=== PATIENT | male | born 1940 | race Caucasian/White ===

== ENCOUNTER 2025-01-21 23:08 | Emergency (ER) | payer MEDICARE, SELFPAY ==
[2025-01-21 23:31] VITALS: BP 152/70; PULSE 67; RESP 18; TEMP 36.7; O2SAT 96; BMI 27.9
--- NOTE | 2025-01-21 23:50 | DI.CT.S_ITS ---
PROCEDURE: CT HEAD/BRAIN WO CON INDICATIONS: dizziness TECHNIQUE: Noncontrast 4.5 mm thick angled axial sections acquired from the foramen magnum to the vertex, with coronal and sagittal reformats. For radiation dose reduction, the following was used: automated exposure control, adjustment of mA and/or kV according to patient size. COMPARISON: None. FINDINGS: Image quality: Diagnostic. CSF spaces: Basal cisterns are patent. No extra-axial fluid collections. The ventricles are symmetric in size and shape. Brain: No intracranial bleeds or mass effect. There is cerebral volume loss, with resultant ventricular and sulcal prominence. There are periventricular and deep white matter chronic small vessel ischemic changes. There is intracranial internal carotid artery atherosclerosis. Skull and face: Calvarium and visualized facial bones appear intact, without suspicious lesions. Sinuses: Mild mucosal thickening of the maxillary sinuses. IMPRESSION: No acute intracranial pathology. Dictated by: Abdullahi Waggoner M.D. on 01/22/2025 at 0:28 Approved by: Abdullahi Waggoner M.D. on 01/22/2025 at 0:29
[2025-01-21] MEDS: ONDANSETRON 4 MG/2 ML INJ IV (23:56)
[2025-01-22] VITALS (33 sets, daily range): BP systolic 125–195; BP diastolic 64–91; PULSE 58–91; RESP 15–35; O2SAT 91–96
[2025-01-22 00:02] LABS: Add Manual Diff / Slide Review NO; Hematocrit 42.4 % (41-53); Hemoglobin 14.4 g/dL (13.5-17.5); Lymphocytes Absolute Auto 900 /uL (1100-4500); Mean Corpuscular HGB Conc 33.9 % (30-36); Mean Corpuscular Hemoglobin 31.3 PG (26-34); Mean Corpuscular Volume 92.3 fL (80-100); Platelet Count 231 X10^3/uL (150-400)
[2025-01-22 00:12] LABS: Alanine Aminotransferase 34 IU/L (<50); Albumin 4.3 g/dL (3.5-5.0); Albumin Globulin Ratio 1.3 (1.0-2.8); Alkaline Phosphatase 75 U/L (38-126); Blood Urea Nitrogen 12 mg/dL (9-20); Calcium 9.0 mg/dL (8.4-10.2); Carbon Dioxide 27 mmol/L (22-32); Chloride 101 mmol/L (98-107); Estimated Glomerular Filt Rate > 60 mL/min (>60); Globulin 3.2 g/dL (1.7-4.1); Glucose 225 mg/dL (70-99); HEMOLYSIS < 15 (0-50); Potassium 4.2 mmol/L (3.4-5.1); Sodium 136 mmol/L (137-145); Total Protein 7.5 g/dL (6.3-8.2)
--- NOTE | 2025-01-22 05:27 | ED.NAVMDI ---
HPI - Nausea/Vomiting/Diarrhea <Mingo Mckeon MD - Last Filed: 01/22/25 15:34> General Chief complaint: Nausea/Vomiting/Diarrhea Stated complaint: fell, hit head possible concussion Time Seen by Provider: 01/22/25 03:15 Source: patient Mode of arrival: Wheelchair History of Present Illness HPI Narrative: 84-year-old male visiting [facility] from home [facility], with sleeping on a bed that is slightly higher than his usual height, well family members were out watching fireworks on 01/20/2025, patient lost his balance trying to get out from the bed, fell forward striking his forehead on the ground, no loss of consciousness, had emesis thereafter, seemed unsteady in his gait, and then seemed to recover. He would not seek care initially from [place]. He has had persisting frontal headache since then. Also has abrasion to the right forearm. Without any obvious new injuries. Related Data Previous Rx's ?Medication ?Instructions ?Recorded ondansetron 4 mg disintegrating 4 mg PO Q6H PRN nausea and 01/22/25 tablet vomiting #20 tabs Allergies Allergy/AdvReac Type Severity Reaction Status Date / Time No Known Drug Allergies Allergy Verified 01/21/25 23:31 Patient History <Mingo Mckeon MD - Last Filed: 01/22/25 15:34> Social History Smoking Status: Never smoker Smoking Status: Never smoker Exam <Mingo Mckeon MD - Last Filed: 01/22/25 15:34> Narrative Exam Narrative: GENERAL: Well-developed patient, in mild distress. HEAD: Atraumatic. Normocephalic. EYES: Pupils equal round and reactive. Extraocular motions intact. No scleral icterus. No injection or drainage. ENT: Nose without bleeding, purulent drainage. Throat without erythema, tonsillar hypertrophy or exudate. Airway patent. NECK: Trachea midline. Non tender CARDIOVASCULAR: Regular rate and rhythm without murmurs, gallops, or rubs. RESPIRATORY: Clear to auscultation. Breath sounds equal bilaterally. No wheezes, rales, or rhonchi. GASTROINTESTINAL: Abdomen soft, non-tender, nondistended. EXTREMITIES: Right elbow abrasion, no suturable laceration, normal range of motion. BACK: Nontender without deformity or crepitance. No flank tenderness. NEURO: AOx3. Motor functions grossly nonfocal. SKIN: No rash or erythema of visible areas Initial Vital Signs Initial Vital Signs: Vital Signs Temperature 98.0 F 01/21/25 23:31 Pulse Rate 67 01/21/25 23:31 Respiratory Rate 18 01/21/25 23:31 Blood Pressure 152/70 H 01/21/25 23:31 Pulse Oximetry 96 01/21/25 23:31 Oxygen Delivery Method Room Air 01/21/25 23:31 <Bear Porras MD - Last Filed: 01/22/25 10:49> Initial Vital Signs Initial Vital Signs: Vital Signs Temperature 98.0 F 01/21/25 23:31 Pulse Rate 67 01/21/25 23:31 Respiratory Rate 18 01/21/25 23:31 Blood Pressure 152/70 H 01/21/25 23:31 Pulse Oximetry 96 01/21/25 23:31 Oxygen Delivery Method Room Air 01/21/25 23:31 Course <Mingo Mckeon MD - Last Filed: 01/22/25 15:34> Orders Ordered: ED Orders 01/22/25 08:54 CBC Auto Diff [Complete Blood Count AUTO DIFF] Stat CMP [Comprehensive Metabolic Panel] Stat Discontinued Medications Bacitracin (Bacitracin Oint 0.9 Gm Pckt) 1 applic TOP NOW ONE Stop: 01/22/25 07:21 Last Admin: 01/22/25 08:43 Dose: 1 applic Documented By: Sodium Chloride (Normal Saline 0.9%) 500 mls @ 500 mls/hr IV BOLUS ONE Stop: 01/22/25 08:41 Last Infusion: 01/22/25 09:00 Dose: Infused Documented By: Admin: 01/22/25 08:06 Dose: 500 mls/hr Documented By: Ondansetron HCl (Ondansetron 4 Mg/2 Ml Inj) 4 mg IV NOW ONE Stop: 01/21/25 23:51 Last Admin: 01/21/25 23:56 Dose: 4 mg Documented By: RISHABH Vital Signs Vital signs: Vital Signs - 8 hr 01/22/25 07:30 01/22/25 07:35 01/22/25 07:35 Pulse Rate 62 64 Pulse Rate [Orthostatic Lying] Pulse Rate [Orthostatic Sitting] Pulse Rate [Orthostatic Standing] Respiratory Rate 27 H 25 H Blood Pressure 164/71 H Blood Pressure [Orthostatic Lying] Blood Pressure [Orthostatic Sitting] Blood Pressure [Orthostatic Standing] Pulse Oximetry 96 94 Oxygen Delivery Method 01/22/25 08:00 01/22/25 08:01 01/22/25 08:01 Pulse Rate 60 60 Pulse Rate [Orthostatic Lying] Pulse Rate [Orthostatic Sitting] Pulse Rate [Orthostatic Standing] Respiratory Rate 16 15 Blood Pressure 177/70 H Blood Pressure [Orthostatic Lying] Blood Pressure [Orthostatic Sitting] Blood Pressure [Orthostatic Standing] Pulse Oximetry 92 93 Oxygen Delivery Method 01/22/25 08:30 01/22/25 09:00 01/22/25 09:29 Pulse Rate 60 63 65 Pulse Rate [Orthostatic Lying] Pulse Rate [Orthostatic Sitting] Pulse Rate [Orthostatic Standing] Respiratory Rate 16 17 23 Blood Pressure Blood Pressure [Orthostatic Lying] Blood Pressure [Orthostatic Sitting] Blood Pressure [Orthostatic Standing] Pulse Oximetry 96 95 95 Oxygen Delivery Method 01/22/25 09:29 01/22/25 09:30 01/22/25 09:31 Pulse Rate 66 Pulse Rate [Orthostatic Lying] Pulse Rate [Orthostatic Sitting] Pulse Rate [Orthostatic Standing] Respiratory Rate 28 H Blood Pressure 153/64 H 148/67 H Blood Pressure [Orthostatic Lying] Blood Pressure [Orthostatic Sitting] Blood Pressure [Orthostatic Standing] Pulse Oximetry 94 Oxygen Delivery Method 01/22/25 09:31 01/22/25 09:42 01/22/25 09:46 Pulse Rate 70 72 Pulse Rate [Orthostatic Lying] 66 Pulse Rate [Orthostatic Sitting] 67 Pulse Rate [Orthostatic Standing] 72 Respiratory Rate 22 19 Blood Pressure 148/67 H Blood Pressure [Orthostatic Lying] 177/70 H Blood Pressure [Orthostatic Sitting] 153/64 H Blood Pressure [Orthostatic Standing] 148/67 H Pulse Oximetry 95 96 Oxygen Delivery Method Room Air 01/22/25 10:00 01/22/25 10:16 01/22/25 10:16 Pulse Rate 69 58 L Pulse Rate [Orthostatic Lying] Pulse Rate [Orthostatic Sitting] Pulse Rate [Orthostatic Standing] Respiratory Rate 35 H 24 Blood Pressure 158/70 H Blood Pressure [Orthostatic Lying] Blood Pressure [Orthostatic Sitting] Blood Pressure [Orthostatic Standing] Pulse Oximetry 95 94 Oxygen Delivery Method 01/22/25 10:30 01/22/25 11:00 01/22/25 11:50 Pulse Rate 59 L 60 73 Pulse Rate [Orthostatic Lying] Pulse Rate [Orthostatic Sitting] Pulse Rate [Orthostatic Standing] Respiratory Rate 16 15 20 Blood Pressure 158/70 H Blood Pressure [Orthostatic Lying] Blood Pressure [Orthostatic Sitting] Blood Pressure [Orthostatic Standing] Pulse Oximetry 93 95 96 Oxygen Delivery Method Room Air <Bear Porras MD - Last Filed: 01/22/25 10:49> Orders Ordered: ED Orders 01/22/25 08:54 CBC Auto Diff [Complete Blood Count AUTO DIFF] Stat CMP [Comprehensive Metabolic Panel] Stat Discontinued Medications Bacitracin (Bacitracin Oint 0.9 Gm Pckt) 1 applic TOP NOW ONE Stop: 01/22/25 07:21 Last Admin: 01/22/25 08:43 Dose: 1 applic Documented By: Sodium Chloride (Normal Saline 0.9%) 500 mls @ 500 mls/hr IV BOLUS ONE Stop: 01/22/25 08:41 Last Infusion: 01/22/25 09:00 Dose: Infused Documented By: Admin: 01/22/25 08:06 Dose: 500 mls/hr Documented By: Ondansetron HCl (Ondansetron 4 Mg/2 Ml Inj) 4 mg IV NOW ONE Stop: 01/21/25 23:51 Last Admin: 01/21/25 23:56 Dose: 4 mg Documented By: RISHABH Vital Signs Vital signs: Vital Signs - 8 hr 01/22/25 07:30 01/22/25 07:35 01/22/25 07:35 Pulse Rate 62 64 Pulse Rate [Orthostatic Lying] Pulse Rate [Orthostatic Sitting] Pulse Rate [Orthostatic Standing] Respiratory Rate 27 H 25 H Blood Pressure 164/71 H Blood Pressure [Orthostatic Lying] Blood Pressure [Orthostatic Sitting] Blood Pressure [Orthostatic Standing] Pulse Oximetry 96 94 Oxygen Delivery Method 01/22/25 08:00 01/22/25 08:01 01/22/25 08:01 Pulse Rate 60 60 Pulse Rate [Orthostatic Lying] Pulse Rate [Orthostatic Sitting] Pulse Rate [Orthostatic Standing] Respiratory Rate 16 15 Blood Pressure 177/70 H Blood Pressure [Orthostatic Lying] Blood Pressure [Orthostatic Sitting] Blood Pressure [Orthostatic Standing] Pulse Oximetry 92 93 Oxygen Delivery Method 01/22/25 08:30 01/22/25 09:00 01/22/25 09:29 Pulse Rate 60 63 65 Pulse Rate [Orthostatic Lying] Pulse Rate [Orthostatic Sitting] Pulse Rate [Orthostatic Standing] Respiratory Rate 16 17 23 Blood Pressure Blood Pressure [Orthostatic Lying] Blood Pressure [Orthostatic Sitting] Blood Pressure [Orthostatic Standing] Pulse Oximetry 96 95 95 Oxygen Delivery Method 01/22/25 09:29 01/22/25 09:30 01/22/25 09:31 Pulse Rate 66 Pulse Rate [Orthostatic Lying] Pulse Rate [Orthostatic Sitting] Pulse Rate [Orthostatic Standing] Respiratory Rate 28 H Blood Pressure 153/64 H 148/67 H Blood Pressure [Orthostatic Lying] Blood Pressure [Orthostatic Sitting] Blood Pressure [Orthostatic Standing] Pulse Oximetry 94 Oxygen Delivery Method 01/22/25 09:31 01/22/25 09:42 01/22/25 09:46 Pulse Rate 70 72 Pulse Rate [Orthostatic Lying] 66 Pulse Rate [Orthostatic Sitting] 67 Pulse Rate [Orthostatic Standing] 72 Respiratory Rate 22 19 Blood Pressure 148/67 H Blood Pressure [Orthostatic Lying] 177/70 H Blood Pressure [Orthostatic Sitting] 153/64 H Blood Pressure [Orthostatic Standing] 148/67 H Pulse Oximetry 95 96 Oxygen Delivery Method Room Air 01/22/25 10:00 01/22/25 10:16 01/22/25 10:16 Pulse Rate 69 58 L Pulse Rate [Orthostatic Lying] Pulse Rate [Orthostatic Sitting] Pulse Rate [Orthostatic Standing] Respiratory Rate 35 H 24 Blood Pressure 158/70 H Blood Pressure [Orthostatic Lying] Blood Pressure [Orthostatic Sitting] Blood Pressure [Orthostatic Standing] Pulse Oximetry 95 94 Oxygen Delivery Method 01/22/25 10:30 01/22/25 11:00 01/22/25 11:50 Pulse Rate 59 L 60 73 Pulse Rate [Orthostatic Lying] Pulse Rate [Orthostatic Sitting] Pulse Rate [Orthostatic Standing] Respiratory Rate 16 15 20 Blood Pressure 158/70 H Blood Pressure [Orthostatic Lying] Blood Pressure [Orthostatic Sitting] Blood Pressure [Orthostatic Standing] Pulse Oximetry 93 95 96 Oxygen Delivery Method Room Air MDM - Nausea/Vomiting/Diarrhea <Mingo Mckeon MD - Last Filed: 01/22/25 15:34> Lab Data 01/22/25 08:54 01/22/25 08:54 Labs: Lab Results 01/21/25 01/21/25 01/22/25 Range/Units 07:33 23:52 05:40 WBC 14.6 H (4.5-11.0) X10^3/uL RBC 4.59 (4.5-5.9) X10^6/uL Hgb 14.4 (13.5-17.5) g/dL Hct 42.4 (41-53) % MCV 92.3 (80-100) fL MCH 31.3 (26-34) PG MCHC 33.9 (30-36) % RDW 13.9 (11.6-14.8) % Plt Count 231 (150-400) X10^3/uL Neut % (Auto) 90.6 H (50-75) % Lymph % (Auto) 6.4 L (25-40) % [place] % (Auto) 2.8 L (3-14) % Eos % (Auto) 0.0 L (2-4) % Baso % (Auto) 0.2 (0-2) % Neut # (Auto) 80501 H (7120-8757) /uL Lymph # (Auto) 900 L (2278-9753) /uL [place] # (Auto) 400 (0-900) /uL Eos # (Auto) 0 (0-450) /uL Baso # (Auto) 0 (0-100) /uL Sodium 136 L (137-145) mmol/L Potassium 4.2 (3.4-5.1) mmol/L Chloride 101 (98-107) mmol/L Carbon Dioxide 27 (22-32) mmol/L BUN 12 (9-20) mg/dL Creatinine 0.77 (0.66-1.25) mg/dL Estimated GFR > 60 (>60) mL/min BUN/Creatinine Ratio 15.6 (6-22) Glucose 225 H (70-99) mg/dL Lactate 1.7 (0.7-2.1) mmol/L Calcium 9.0 (8.4-10.2) mg/dL Total Bilirubin 0.9 (0.2-1.3) mg/dL AST 29 (17-59) IU/L ALT 34 (<50) IU/L Alkaline Phosphatase 75 (38-126) U/L Total Protein 7.5 (6.3-8.2) g/dL Albumin 4.3 (3.5-5.0) g/dL Globulin 3.2 (1.7-4.1) g/dL Albumin/Globulin Ratio 1.3 (1.0-2.8) Urine Color Yellow Urine Appearance Clear Urine pH 6.0 (4.5-8.0) Ur Specific [place] >=1.030 H (1.000-1.035) Urine Protein 2+ H (Negative) Urine Glucose (UA) 3+ H (Negative) g/dL Urine Ketones 2+ H (NEGATIVE) Urine Occult Blood 3+ H (Negative) Urine Nitrate Negative (Negative) Urine Bilirubin 1+ H (NEGATIVE) Ur Bilirubin Confirm Negative (Negative) Urine Urobilinogen 1.0 (0.2) E.U./dL Ur Leukocyte Esterase Negative (NEGATIVE) Urine RBC 10-30/hpf H (0-5/HPF) Urine WBC 1-5/hpf (0-5/HPF) Ur Squamous Epith Cells 0-1 /hpf (0-5/HPF) Urine Bacteria None seen (None) Urine Yeast 1-5/hpf H (None) Ur Culture Indicated? Cult not indicated Vol Urine Centrifuged 10ml (spun) 01/22/25 Range/Units 08:54 WBC 13.7 H (4.5-11.0) X10^3/uL RBC 4.26 L (4.5-5.9) X10^6/uL Hgb 13.3 L (13.5-17.5) g/dL Hct 39.4 L (41-53) % MCV 92.4 (80-100) fL MCH 31.3 (26-34) PG MCHC 33.9 (30-36) % RDW 14.0 (11.6-14.8) % Plt Count 220 (150-400) X10^3/uL Neut % (Auto) 89.1 H (50-75) % Lymph % (Auto) 6.3 L (25-40) % [place] % (Auto) 4.5 (3-14) % Eos % (Auto) 0.0 L (2-4) % Baso % (Auto) 0.1 (0-2) % Neut # (Auto) 42002 H (7989-5777) /uL Lymph # (Auto) 900 L (5339-5605) /uL [place] # (Auto) 600 (0-900) /uL Eos # (Auto) 0 (0-450) /uL Baso # (Auto) 0 (0-100) /uL Sodium 135 L (137-145) mmol/L Potassium 4.3 (3.4-5.1) mmol/L Chloride 101 (98-107) mmol/L Carbon Dioxide 29 (22-32) mmol/L BUN 15 (9-20) mg/dL Creatinine 0.82 (0.66-1.25) mg/dL Estimated GFR > 60 (>60) mL/min BUN/Creatinine Ratio 18.3 (6-22) Glucose 235 H (70-99) mg/dL Lactate (0.7-2.1) mmol/L Calcium 8.5 (8.4-10.2) mg/dL Total Bilirubin 0.7 (0.2-1.3) mg/dL AST 25 (17-59) IU/L ALT 29 (<50) IU/L Alkaline Phosphatase 63 (38-126) U/L Total Protein 6.7 (6.3-8.2) g/dL Albumin 3.8 (3.5-5.0) g/dL Globulin 2.9 (1.7-4.1) g/dL Albumin/Globulin Ratio 1.3 (1.0-2.8) Urine Color Urine Appearance Urine pH (4.5-8.0) Ur Specific [place] (1.000-1.035) Urine Protein (Negative) Urine Glucose (UA) (Negative) g/dL Urine Ketones (NEGATIVE) Urine Occult Blood (Negative) Urine Nitrate (Negative) Urine Bilirubin (NEGATIVE) Ur Bilirubin Confirm (Negative) Urine Urobilinogen (0.2) E.U./dL Ur Leukocyte Esterase (NEGATIVE) Urine RBC (0-5/HPF) Urine WBC (0-5/HPF) Ur Squamous Epith Cells (0-5/HPF) Urine Bacteria (None) Urine Yeast (None) Ur Culture Indicated? Vol Urine Centrifuged Imaging Data CT scan - head: Radiologist's Impression: [address] [address] [address] Scan Report Signed Patient: Lazaro Thao MR#: [id number] : 1940 Acct:[id number] Age/Sex: 84 / M Date of Service: 01/21/25 Loc: ED Accession Number: [id number] Procedure: CT head/brain wo con Ordering Provider: Mingo Mckeon MD PROCEDURE: CT HEAD/BRAIN WO CON INDICATIONS: dizziness TECHNIQUE: Noncontrast 4.5 mm thick angled axial sections acquired from the foramen magnum to the vertex, with coronal and sagittal reformats. For radiation dose reduction, the following was used: automated exposure control, adjustment of mA and/or kV according to patient size. COMPARISON: None. FINDINGS: Image quality: Diagnostic. CSF spaces: Basal cisterns are patent. No extra-axial fluid collections. The ventricles are symmetric in size and shape. Brain: No intracranial bleeds or mass effect. There is cerebral volume loss, with resultant ventricular and sulcal prominence. There are periventricular and deep white matter chronic small vessel ischemic changes. There is intracranial internal carotid artery atherosclerosis. Skull and face: Calvarium and visualized facial bones appear intact, without suspicious lesions. Sinuses: Mild mucosal thickening of the maxillary sinuses. IMPRESSION: No acute intracranial pathology. Dictated by: Abdullahi Waggoner M.D. on 01/22/2025 at 0:28 Approved by: Abdullahi Waggoner M.D. on 01/22/2025 at 0:29 MDM Narrative Medical decision making narrative: 84-year-old male had ground level fall 2 days ago, forehead contusion, vomiting afterwards, subsequent unsteady gait, felt recovered that day, headache improved, had nausea/vomiting. Denies chest pain, abdominal pain, shortness of breath. Also has abrasion to his right elbow. No other apparent new injuries. Elder recent fall forehead contusion by history, nausea/vomiting, concern for TBI, CT head noncontrast ordered. CT head noncontrast study, no acute changes. See radiology report. Abrasion to the elbow without gross deformity, local wound care antibiotic ointment and Band-Aid dressing. 0700, attempted discharged home, patient wanted to go home, but per nursing he did not seem to perform very well with walking attempt. Will send labs from blood initially collected. Will gentle IV fluid bolus. Re-attempt ambulation perhaps with/without walker after IV fluids. Reassess gait after labs and fluids done, to see if patient seems to be safe discharge, he seems to be motivated to want to be going back home to [place]. Consider [facility]. [facility]. (notes below from Dr Porras) 01/22/2025, 8:00 a.m., reviewed the lab including CBC showed WBC 14.6 with neutrophils 90% otherwise normal CBC. His sodium was 136 otherwise, CMP. His UA showed no UTI but some blood in the urine. Reviewed a CT scan brain showed no acute finding. Went to talk to the patient. He denied any headache, nausea vomiting, chest pain, shortness of breath. We are giving him 500 cc of IV normal saline and we will try road tests on him again. 10:30 a.m. after the patient was given IV normal saline 500 mL and repeat a road test successfully. He was able to walk to the bathroom without difficulty. Repeat CBC, CMP this morning showed no different from last night blood test. He will discharge with Zofran and to follow up with his PCP outpatient. <Bear Porras MD - Last Filed: 01/22/25 10:49> Lab Data Labs: Lab Results 01/21/25 01/21/25 01/22/25 Range/Units 07:33 23:52 05:40 WBC 14.6 H (4.5-11.0) X10^3/uL RBC 4.59 (4.5-5.9) X10^6/uL Hgb 14.4 (13.5-17.5) g/dL Hct 42.4 (41-53) % MCV 92.3 (80-100) fL MCH 31.3 (26-34) PG MCHC 33.9 (30-36) % RDW 13.9 (11.6-14.8) % Plt Count 231 (150-400) X10^3/uL Neut % (Auto) 90.6 H (50-75) % Lymph % (Auto) 6.4 L (25-40) % [place] % (Auto) 2.8 L (3-14) % Eos % (Auto) 0.0 L (2-4) % Baso % (Auto) 0.2 (0-2) % Neut # (Auto) 36621 H (5327-4344) /uL Lymph # (Auto) 900 L (7776-6432) /uL [place] # (Auto) 400 (0-900) /uL Eos # (Auto) 0 (0-450) /uL Baso # (Auto) 0 (0-100) /uL Sodium 136 L (137-145) mmol/L Potassium 4.2 (3.4-5.1) mmol/L Chloride 101 (98-107) mmol/L Carbon Dioxide 27 (22-32) mmol/L BUN 12 (9-20) mg/dL Creatinine 0.77 (0.66-1.25) mg/dL Estimated GFR > 60 (>60) mL/min BUN/Creatinine Ratio 15.6 (6-22) Glucose 225 H (70-99) mg/dL Lactate 1.7 (0.7-2.1) mmol/L Calcium 9.0 (8.4-10.2) mg/dL Total Bilirubin 0.9 (0.2-1.3) mg/dL AST 29 (17-59) IU/L ALT 34 (<50) IU/L Alkaline Phosphatase 75 (38-126) U/L Total Protein 7.5 (6.3-8.2) g/dL Albumin 4.3 (3.5-5.0) g/dL Globulin 3.2 (1.7-4.1) g/dL Albumin/Globulin Ratio 1.3 (1.0-2.8) Urine Color Yellow Urine Appearance Clear Urine pH 6.0 (4.5-8.0) Ur Specific [place] >=1.030 H (1.000-1.035) Urine Protein 2+ H (Negative) Urine Glucose (UA) 3+ H (Negative) g/dL Urine Ketones 2+ H (NEGATIVE) Urine Occult Blood 3+ H (Negative) Urine Nitrate Negative (Negative) Urine Bilirubin 1+ H (NEGATIVE) Ur Bilirubin Confirm Negative (Negative) Urine Urobilinogen 1.0 (0.2) E.U./dL Ur Leukocyte Esterase Negative (NEGATIVE) Urine RBC 10-30/hpf H (0-5/HPF) Urine WBC 1-5/hpf (0-5/HPF) Ur Squamous Epith Cells 0-1 /hpf (0-5/HPF) Urine Bacteria None seen (None) Urine Yeast 1-5/hpf H (None) Ur Culture Indicated? Cult not indicated Vol Urine Centrifuged 10ml (spun) 01/22/25 Range/Units 08:54 WBC 13.7 H (4.5-11.0) X10^3/uL RBC 4.26 L (4.5-5.9) X10^6/uL Hgb 13.3 L (13.5-17.5) g/dL Hct 39.4 L (41-53) % MCV 92.4 (80-100) fL MCH 31.3 (26-34) PG MCHC 33.9 (30-36) % RDW 14.0 (11.6-14.8) % Plt Count 220 (150-400) X10^3/uL Neut % (Auto) 89.1 H (50-75) % Lymph % (Auto) 6.3 L (25-40) % [place] % (Auto) 4.5 (3-14) % Eos % (Auto) 0.0 L (2-4) % Baso % (Auto) 0.1 (0-2) % Neut # (Auto) 28872 H (5175-1371) /uL Lymph # (Auto) 900 L (5666-7053) /uL [place] # (Auto) 600 (0-900) /uL Eos # (Auto) 0 (0-450) /uL Baso # (Auto) 0 (0-100) /uL Sodium 135 L (137-145) mmol/L Potassium 4.3 (3.4-5.1) mmol/L Chloride 101 (98-107) mmol/L Carbon Dioxide 29 (22-32) mmol/L BUN 15 (9-20) mg/dL Creatinine 0.82 (0.66-1.25) mg/dL Estimated GFR > 60 (>60) mL/min BUN/Creatinine Ratio 18.3 (6-22) Glucose 235 H (70-99) mg/dL Lactate (0.7-2.1) mmol/L Calcium 8.5 (8.4-10.2) mg/dL Total Bilirubin 0.7 (0.2-1.3) mg/dL AST 25 (17-59) IU/L ALT 29 (<50) IU/L Alkaline Phosphatase 63 (38-126) U/L Total Protein 6.7 (6.3-8.2) g/dL Albumin 3.8 (3.5-5.0) g/dL Globulin 2.9 (1.7-4.1) g/dL Albumin/Globulin Ratio 1.3 (1.0-2.8) Urine Color Urine Appearance Urine pH (4.5-8.0) Ur Specific [place] (1.000-1.035) Urine Protein (Negative) Urine Glucose (UA) (Negative) g/dL Urine Ketones (NEGATIVE) Urine Occult Blood (Negative) Urine Nitrate (Negative) Urine Bilirubin (NEGATIVE) Ur Bilirubin Confirm (Negative) Urine Urobilinogen (0.2) E.U./dL Ur Leukocyte Esterase (NEGATIVE) Urine RBC (0-5/HPF) Urine WBC (0-5/HPF) Ur Squamous Epith Cells (0-5/HPF) Urine Bacteria (None) Urine Yeast (None) Ur Culture Indicated? Vol Urine Centrifuged MDM Narrative Medical decision making narrative: 84-year-old male had ground level fall 2 days ago, with forehead contusion, vomiting afterwards, unsteady gait, recovered that day, has persisting headache, here for imaging. Also has abrasion to his right elbow. No other apparent new injuries. CT head noncontrast study, no acute changes. See radiology report. Abrasion to the elbow without gross deformity, local wound care antibiotic ointment and Band-Aid dressing. 0700, attempted discharged home, patient wanted to go home, but per nursing he did not seem to perform very well with walking attempt. Will send labs. Will give gentle IV fluid bolus. Re-attempt ambulation perhaps with walker after IV fluids. Reassess gait after labs and fluids done, to see if patient seems to be safe discharge, he seems to be motivated to want to be going back home to [place]. Signed out to [facility] ED shift physician Dr Porras. 01/22/2025, 8:00 a.m., reviewed the lab including CBC showed WBC 14.6 with neutrophils 90% otherwise normal CBC. His sodium was 136 otherwise, CMP. His UA showed no UTI but some blood in the urine. Reviewed a CT scan brain showed no acute finding. Went to talk to the patient. He denied any headache, nausea vomiting, chest pain, shortness of breath. We are giving him 500 cc of IV normal saline and we will try road tests on him again. 10:30 a.m. after the patient was given IV normal saline 500 mL and repeat a road test successfully. He was able to walk to the bathroom without difficulty. Repeat CBC, CMP this morning showed no different from last night blood test. He will discharge with Addie and to follow up with his PCP outpatient. Discharge Plan Departure Patient Disposition: Home Clinical Impression: Fall from ground level, Contusion of forehead, Abrasion of right elbow, Concussion Instructions: DI for Concussion Activity Restrictions/Additional Instructions: Fall on 20 of January getting down from unfamiliar bed visiting from [place] at another persons home on [address], that was slightly higher than usual bed, falling to the ground, striking forehead. Clear if there is loss of consciousness, but there was nausea and vomiting after the event, and some wobbliness and unsteady gait. Right elbow abrasion, normal range of motion, no gross deformity, dressed with antibiotic ointment. CT head noncontrast study was performed, no acute injuries noted. Because you did have a head injury, and did have vomiting and seemed unsteady, you clinically likely had a concussion. Postconcussion is important for you to have physical rest and cognitive rest. Try not to play games or watch flashing lights or activities or concentrated mental tasks for the next couple of days until recheck by your regular doctor in home area [place]. Advised physical rest, not to try to exert yourself for the next couple of days until recheck by your regular doctor in home [facility]. Return earlier to this/nearest emergency department for any change worsening symptoms or any concerns prior. Prescriptions: New ondansetron 4 mg tablet,disintegrating 4 mg PO Q6H PRN (Reason: nausea and vomiting) Qty: 20 0RF Stand Alone Forms: Patient Portal/API
[2025-01-22 06:03] LABS: Lactate (Lactic Acid) 1.7 mmol/L (0.7-2.1)
[2025-01-22 07:46] LABS: Appearance Urine UA CLEAR; Bilirubin Urine UA 1+ (NEGATIVE); Color Urine UA YELLOW; Glucose Urine UA 3+ g/dL (Negative); Ketones Urine UA 2+ (NEGATIVE); Leukocyte Esterase Urine UA NEGATIVE (NEGATIVE); Nitrite Urine UA NEGATIVE (Negative); Occult Blood Urine UA 3+ (Negative); Protein Urine UA 2+ (Negative); Specific Gravity Urine UA >=1.030 (1.000-1.035); Urobilinogen Urine UA 1.0 E.U./dL (0.2); pH Urine UA 6.0 (4.5-8.0)
[2025-01-22 08:00] LABS: Culture Indicated Urine Cult Not Indicated
[2025-01-22] MEDS: SODIUM CHLORIDE 0.9% 500 ML IV (08:06)
[2025-01-22 08:13] LABS: Ictotest Urine Negative (Negative)
[2025-01-22] MEDS: BACITRACIN OINT 0.9 GM PCKT 1 APPLIC TOP (08:43)
[2025-01-22 09:01] LABS: Add Manual Diff / Slide Review NO; Hematocrit 39.4 % (41-53); Hemoglobin 13.3 g/dL (13.5-17.5); Lymphocytes Absolute Auto 900 /uL (1100-4500); Mean Corpuscular HGB Conc 33.9 % (30-36); Mean Corpuscular Hemoglobin 31.3 PG (26-34); Mean Corpuscular Volume 92.4 fL (80-100); Platelet Count 220 X10^3/uL (150-400)
[2025-01-22 09:14] LABS: Alanine Aminotransferase 29 IU/L (<50); Albumin 3.8 g/dL (3.5-5.0); Albumin Globulin Ratio 1.3 (1.0-2.8); Alkaline Phosphatase 63 U/L (38-126); Blood Urea Nitrogen 15 mg/dL (9-20); Calcium 8.5 mg/dL (8.4-10.2); Carbon Dioxide 29 mmol/L (22-32); Chloride 101 mmol/L (98-107); Estimated Glomerular Filt Rate > 60 mL/min (>60); Globulin 2.9 g/dL (1.7-4.1); Glucose 235 mg/dL (70-99); HEMOLYSIS < 15 (0-50); Potassium 4.3 mmol/L (3.4-5.1); Sodium 135 mmol/L (137-145); Total Protein 6.7 g/dL (6.3-8.2)
--- NOTE | 2025-01-22 10:16 | PC.NURSE ---
Pt wanted to walk to the bathroom this morning during shift change. Offered the pt urinal and bedside commode and pt refused both options. Pt attempted to stand up to walk to the bathroom and had a sudden onset of dizziness and was unable to stand without assistance, safely assisted the pt back to the bed and explained to pt and that the pt would have to use the urinal or bedpan for safety. Pt was able to use urinal sitting at bedside. Informed Dr. Mckeon, retail shift manager provider, that the pt was unable to stand up without assistance. Pt was given a 500 ml IV bolus, offered oral fluids as well. After the bolus the pt was able to stand up and walk around the department with gait belt and walker. The pt is going to need education on how to use a walker safely and to the keep the walker close to his body so the walker does not get away from himself. Pt's reports that the pt has vision problems at home and had recent eye surgery approximately 3 weeks ago. Informed day shift provider that the pt was able to pass road test with stand by assist and walker education.
--- NOTE | 2025-01-22 10:17 | PC.NURSE ---
Assisted patient to restroom with walker. Patient has unsteady moments when walking with walker and may need walker training to prevent falls. Nurse advised.
== END 2025-01-22 11:50 | disposition home or self-care (01) ==
PROVIDERS: Emergency Medicine; Emergency Provider Emergency Medicine
DX: S06.0X0A Concussion without loss of consciousness, initial encounter (principal); S00.83XA Contusion of other part of head, initial encounter; S50.311A Abrasion of right elbow, initial encounter; S50.811A Abrasion of right forearm, initial encounter; R42 Dizziness and giddiness; W06.XXXA Fall from bed, initial encounter
CPT/HCPCS: 36415; 70450; 80053; 81001; 83605; 85025; 96361; 96374; 99283; 99284; J2405